=== PATIENT | female | born 1950 | race Caucasian/White ===

== ENCOUNTER 2019-12-27 06:10 | Inpatient (IN) | payer MEDICARE, BC ==
[2019-12-27] MEDS ORDERED: Acetaminophen 500 MG Tab PO ONE (06:30)
[2019-12-27] MEDS ORDERED: Scopolamine 1.5 MG Transdermal Patch TRDERM SCH (06:30)
[2019-12-27] MEDS ORDERED: Celecoxib 200 MG Cap PO ONE (06:30)
[2019-12-27] MEDS ORDERED: Meropenem 500 MG SDV ONE (06:34)
[2019-12-27] MEDS ORDERED: Lidocaine 1% with EPINEPHrine 1:100,000 50 ML MDV ONE (06:36)
[2019-12-27] MEDS ORDERED: Bupivacaine 0.5% 50 ML MDV ONE (06:36)
[2019-12-27] MEDS ORDERED: Dextrose 5%-Lactated Ringers 1,000 ML IV SCH (07:00)
[2019-12-27] MEDS ORDERED: Succinylcholine 200 MG/10 ML MDV ONE (07:05)
[2019-12-27] MEDS ORDERED: fentaNYL 250 MCG/5 ML SDV ONE ×2 (07:05→08:27)
[2019-12-27] MEDS ORDERED: Ondansetron 4 MG/2 ML SDV ONE (07:05)
[2019-12-27] MEDS ORDERED: Glycopyrrolate 0.2 MG/ML 5 ML MDV ONE (07:05)
[2019-12-27] MEDS ORDERED: Neostigmine Methylsulfate 1 MG/ML 5 ML Syringe ONE (07:05)
[2019-12-27] MEDS ORDERED: Rocuronium 50 MG/5 ML Vial ONE (07:05)
[2019-12-27] MEDS ORDERED: Dexamethasone 4 MG/ML SDV ONE (07:05)
[2019-12-27] MEDS ORDERED: Propofol 200 MG/20 ML SDV ONE (07:05)
[2019-12-27] MEDS ORDERED: Albuterol/Ipratropium 3.0-0.5 MG/3 ML Neb Soln NEB ONE (07:30)
[2019-12-27] MEDS ORDERED: Albuterol 8 GM Inhaler INH ONE (08:00)
[2019-12-27] MEDS ORDERED: cefOXitin 2 GM in Sodium Chloride 0.9% 50 ML IV ONE (08:15)
[2019-12-27] MEDS ORDERED: Ketamine 500 MG/5 ML MDV IV SCH (08:30)
[2019-12-27] MEDS ORDERED: Ketamine 50 MG in Sodium Chloride 0.9% 49.5 ML IV SCH (08:30)
[2019-12-27] MEDS ORDERED: Magnesium Sulfate 2.7 GM in Sodium Chloride 0.9% 100 ML IV SCH (08:30)
[2019-12-27] MEDS ORDERED: Magnesium Sulfate 4.3 GM in Sodium Chloride 0.9% 250 ML IV ONE (08:30)
[2019-12-27] MEDS ORDERED: Ropivacaine 46 ML, dexAMETHasone 8 MG, EPINEPHrine 0.4 MG, Sodium Chloride 0.9% 31.6 ML NERVRT SCH ×4 (08:30)
[2019-12-27] MEDS ORDERED: hydrOXYzine HCL 100 MG/2 ML SDV IM ONE (10:12)
[2019-12-27] MEDS ORDERED: Ondansetron 4 MG/2 ML SDV IVPUSH ONE (10:13)
[2019-12-27] MEDS: Dextrose 5%-Lactated Ringers 1,000 ML IV SCH ×2 (11:00→22:29)
[2019-12-27] MEDS ORDERED: Cyclobenzaprine 10 MG Tab PO PRN (11:20)
[2019-12-27] MEDS: HYDROmorphone 1 MG/ML Syringe IV PRN ×2 (11:24→22:40)
[2019-12-27] MEDS ORDERED: Labetalol 20 MG/4 ML Syringe IVPUSH PRN (12:00)
[2019-12-27] MEDS ORDERED: Metoclopramide 10 MG/2 ML SDV IVPUSH PRN (12:00)
[2019-12-27] MEDS ORDERED: Pantoprazole 40 MG Vial IVPUSH SCH (12:00)
[2019-12-27] MEDS ORDERED: Acetaminophen 500 MG Tab PO PRN (12:00)
[2019-12-27] MEDS ORDERED: diphenhydrAMINE 50 MG/ML SDV IVPUSH PRN (12:00)
[2019-12-27] MEDS ORDERED: hydrOXYzine HCL 100 MG/2 ML SDV IM PRN (12:00)
[2019-12-27] MEDS ORDERED: HYDROmorphone 0.5 MG/0.5 ML Syringe IVPUSH PRN (12:00)
[2019-12-27] MEDS ORDERED: Calcium Gluconate 10% 1 GM/10 ML SDV IVPUSH PRN (12:00)
[2019-12-27] MEDS ORDERED: Ondansetron 4 MG/2 ML SDV IVPUSH PRN (12:00)
[2019-12-27] MEDS: Acetaminophen 500 MG Tab PO SCH ×2 (14:16→21:00)
[2019-12-27] MEDS: cefOXitin 2 GM in Sodium Chloride 0.9% 50 ML IV SCH ×2 (14:31→20:58)
[2019-12-27] MEDS: Oxybutynin 5 MG Tab PO SCH ×2 (14:36→21:03)
[2019-12-27] MEDS ORDERED: MVI, Adult with Vitamin K 10 ML, Thiamine 200 MG, Chromium/Copper/Mang/Selen/Zn 1 ML in... IV SCH ×4 (16:00)
[2019-12-27] MEDS: Heparin Sodium 5,000 Units/ML Vial SUBCUT SCH (16:43)
[2019-12-27] MEDS: oxyCODONE 5 MG Tab PO PRN (21:14)
[2019-12-28] MEDS: cefOXitin 2 GM in Sodium Chloride 0.9% 50 ML IV SCH ×2 (02:30→07:53)
[2019-12-28] MEDS: Heparin Sodium 5,000 Units/ML Vial SUBCUT SCH ×2 (03:41→15:35)
[2019-12-28] MEDS: oxyCODONE 5 MG Tab PO PRN ×4 (03:42→21:53)
[2019-12-28] MEDS ORDERED: methylPREDNISolone Sodium Succinate 125 MG/2 ML SDV IVPUSH ONE (04:00)
[2019-12-28] MEDS ORDERED: diphenhydrAMINE 50 MG/ML SDV IVPUSH ONE (04:00)
[2019-12-28] MEDS: Dextrose 5%-Lactated Ringers 1,000 ML IV SCH ×2 (04:36→11:56)
[2019-12-28] MEDS: Acetaminophen 500 MG Tab PO SCH ×3 (05:05→21:49)
[2019-12-28] MEDS ORDERED: Ondansetron 4 MG Tab.DIS PO PRN (06:56)
[2019-12-28] MEDS: Levothyroxine 25 MCG Tab PO SCH (07:51)
[2019-12-28] MEDS: Oxybutynin 5 MG Tab PO SCH ×3 (08:01→20:05)
[2019-12-28] MEDS: Celecoxib 200 MG Cap PO SCH ×2 (08:02→20:02)
[2019-12-28] MEDS: SCOPOLAMINE PATCH CHECK TOP SCH (08:02)
[2019-12-28] MEDS: Sertraline 50 MG Tab PO SCH (08:02)
--- NOTE | 2019-12-28 09:20 | CR ---
[facility] HISTORY: Postbariatric surgery FINDINGS: Patient swallowed water-soluble contrast. Upright views of the abdomen show no evidence of extravasation or obstruction. IMPRESSION: Status post bariatric surgery No extravasation or obstruction seen
--- NOTE | 2019-12-28 09:30 | PN ---
DATE OF SERVICE: 12/28/2019 SUBJECTIVE: Alice is postoperative day 1. She has been afebrile. Vital signs have been stable. Pain has been managed with oxycodone and Dilaudid IV. Oral intake 930, output 2840 via Leon catheter. She has been up, ambulating. Upper GI this morning was normal. REVIEW OF SYSTEMS: Remainder of review of systems negative for any pertinent positives and negatives. OBJECTIVE: GENERAL: Alice Mccall is a pleasant 69-year-old female. VITAL SIGNS: TPR at 0711; 97, 60, 16. Blood pressure 122/86. HEENT: Negative. NECK: Supple. HEART: Regular rate and rhythm. LUNGS: Clear. ABDOMEN: Dressing dry and intact. Aquacel dressing is on. Abdominal binder is on. EXTREMITIES: Without peripheral edema. ASSESSMENT: Exploratory laparotomy with lysis of adhesions. 1. Revision of Lynda-en-Y gastric bypass surgery. 2. Separate small bowel strictureplasty. 3. Excision of peritoneal nodule. POSTOPERATIVE DIAGNOSES: 1. Partial small bowel obstruction secondary to adhesions. 2. 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 3. Peritoneal nodule Lynda limb, small bowel, 3.5 cm. Date of surgery 12/27/2019. Surgeon: Tino Haywood MD. PLAN: 1. Decrease IV to 100 mL per hour. 2. Discontinue Leon catheter. 3. Step 2 gastric bypass diet with no cereal. 4. Continue use of incentive spirometer. 5. We will evaluate p.r.n. or in a.m. Galina Kat PA-C /[id number]
[2019-12-28] MEDS: Pantoprazole 40 MG Delayed-Release Granules 1 Packet PO SCH (11:31)
[2019-12-28] MEDS: MVI, Adult with Vitamin K 10 ML, Thiamine 200 MG, Chromium/Copper/Mang/Selen/Zn 1 ML in... IV SCH ×4 (15:40)
[2019-12-28] MEDS: hydrOXYzine HCl 25 MG Tab PO PRN (20:05)
[2019-12-29] MEDS: Heparin Sodium 5,000 Units/ML Vial SUBCUT SCH ×2 (04:54→16:54)
[2019-12-29] MEDS: oxyCODONE 5 MG Tab PO PRN ×2 (04:58→11:10)
[2019-12-29] MEDS: Acetaminophen 500 MG Tab PO SCH ×3 (07:19→21:45)
[2019-12-29] MEDS: Levothyroxine 25 MCG Tab PO SCH (07:19)
[2019-12-29] MEDS: Dextrose 5%-Lactated Ringers 1,000 ML IV SCH (08:28)
[2019-12-29] MEDS: Sertraline 50 MG Tab PO SCH (08:44)
[2019-12-29] MEDS: Oxybutynin 5 MG Tab PO SCH ×3 (08:44→20:02)
[2019-12-29] MEDS: Bisacodyl 5 MG Tab PO SCH ×2 (08:44→20:02)
[2019-12-29] MEDS: Celecoxib 200 MG Cap PO SCH ×2 (08:44→20:02)
[2019-12-29] MEDS: SCOPOLAMINE PATCH CHECK TOP SCH (08:44)
[2019-12-29] MEDS ORDERED: Cyanocobalamin (Vitamin B12) 1,000 MCG/ML SDV IM ONE (09:00)
--- NOTE | 2019-12-29 10:15 | PN ---
DATE OF SERVICE: 12/29/2019 SUBJECTIVE: Alice has not had a bowel movement yet. Her pain is controlled. Vital signs stable. She has been up ambulating. Oral intake is 600 mL. Urine output is 650. Reports she is passing flatus. REVIEW OF SYSTEMS: Remainder of review of systems negative for any pertinent positives or negatives. OBJECTIVE: GENERAL: Alice Mccall is a pleasant 69-year-old female. She is alert and orientated. Color pale. VITAL SIGNS: TPR at 0726, 96.5, 66, 16, blood pressure 147/62. HEENT: Negative. NECK: Supple. HEART: Regular rate and rhythm. LUNGS: Clear. ABDOMEN: Dressings dry and intact. Aquacel dressing is on. EXTREMITIES: Without peripheral edema. ASSESSMENT: Exploratory laparotomy with lysis of adhesions. 1. Revision of Lynda-en-Y gastric bypass surgery. 2. Separate small bowel strictureplasty. 3. Excision of peritoneal nodule. POSTOPERATIVE DIAGNOSES: 1. Partial small bowel obstruction secondary to adhesions. 2. 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 3. Peritoneal nodule Lynda limb, small bowel, 3.5 cm. Date of procedure, 12/27/2019. Surgeon: Tino Haywood MD. PLAN: 1. Dressing off, may shower, leaving Aquacel dressing on. 2. Dulcolax tablets 10 mg p.o. b.i.d. Discontinue when the patient has a bowel movement. 3. We will evaluate p.r.n. or in a.m. Galina Kat PA-C /[id number]
[2019-12-29] MEDS: Pantoprazole 40 MG Delayed-Release Granules 1 Packet PO SCH (11:10)
[2019-12-29] MEDS: MVI, Adult with Vitamin K 10 ML, Thiamine 200 MG, Chromium/Copper/Mang/Selen/Zn 1 ML in... IV SCH ×4 (16:55)
[2019-12-29] MEDS: hydrOXYzine HCl 25 MG Tab PO PRN (20:50)
[2019-12-30] MEDS: Heparin Sodium 5,000 Units/ML Vial SUBCUT SCH ×2 (04:44→15:29)
[2019-12-30] MEDS: Acetaminophen 500 MG Tab PO SCH ×3 (05:32→21:18)
[2019-12-30] MEDS: Levothyroxine 25 MCG Tab PO SCH (07:13)
[2019-12-30] MEDS: Sertraline 50 MG Tab PO SCH (08:55)
[2019-12-30] MEDS: Celecoxib 200 MG Cap PO SCH ×2 (08:55→21:18)
[2019-12-30] MEDS: Oxybutynin 5 MG Tab PO SCH ×3 (08:55→21:18)
--- NOTE | 2019-12-30 09:30 | PN ---
DATE OF SERVICE: 12/30/2019 SUBJECTIVE: Alice states she did not sleep very well, feels weak. Today, pain has been controlled. Afebrile. Oral intake 2280, urine output 3300. She has had 2 loose bowel movements. Vital signs have been stable. O2 sat by pulse oximetry has been 92% on 2 L. Alice does not have sleep apnea and does not have a CPAP at home. REVIEW OF SYSTEMS: Remainder of review of systems negative for any pertinent positives and negatives. OBJECTIVE: GENERAL: Alice Mccall is a pleasant 69-year-old female. She is quite sleepy this morning. Color pale. VITAL SIGNS: TPR at 0730; 97.1, 59, 16. Blood pressure 135/61. HEENT: Negative. NECK: Supple. HEART: Regular rate and rhythm. LUNGS: Clear. ABDOMEN: Dressing dry and intact. Aquacel is on. EXTREMITIES: Without peripheral edema. ASSESSMENT: 1. IV saline lock. 2. Wean off oxygen and discontinue. 3. Work on good pulmonary function. 4. Will evaluate p.r.n. or in a.m. Galina Kat PA-C /[id number]
[2019-12-30] MEDS: Pantoprazole 40 MG Delayed-Release Granules 1 Packet PO SCH (13:00)
[2019-12-30] MEDS: hydrOXYzine HCl 25 MG Tab PO PRN (21:18)
[2019-12-31] MEDS: Heparin Sodium 5,000 Units/ML Vial SUBCUT SCH (05:16)
[2019-12-31] MEDS: Acetaminophen 500 MG Tab PO SCH (05:16)
[2019-12-31] MEDS: Levothyroxine 25 MCG Tab PO SCH (07:49)
[2019-12-31] MEDS: Celecoxib 200 MG Cap PO SCH (08:20)
[2019-12-31] MEDS: Sertraline 50 MG Tab PO SCH (08:20)
[2019-12-31] MEDS: Oxybutynin 5 MG Tab PO SCH (08:20)
--- NOTE | 2020-01-01 10:31 | DISCH ---
ADMISSION DIAGNOSES: Partial small bowel obstruction, postprandial abdominal pain, status post Lynda-en-Y gastric bypass surgery, unspecified surgical malabsorption, B12 deficiency, history of weight gain, depression, hypoglycemia, hypothyroidism, history of basal cell carcinoma, constipation and chronic neck pain. DISCHARGE DIAGNOSES: Exploratory laparotomy with lysis of adhesions. 1. Revision of Lynda-en-Y gastric bypass surgery. 2. Separate small bowel strictureplasty. 3. Excision of peritoneal nodule. POSTOPERATIVE DIAGNOSES: 1. Partial small bowel obstruction secondary to adhesions. 2. Stricture of pre-existing jejunojejunostomy. 3. Peritoneal nodule Lynda limb, small bowel, 3.5 cm. Date of surgery 12/27/2019. Surgeon, Tino Haywood MD. HISTORY: Alice Mccall is a 69-year-old female with postprandial abdominal pain. After preoperative evaluation and discussion of possible risks and possible complications, she wished to proceed with surgical procedure. HOSPITAL COURSE: Alice had her surgery on 12/27/2019. She had no operative complications. On postoperative day #1, her IV was decreased, Leon was discontinued. She was started on a step 2 gastric bypass diet. On postoperative day 2, dressing was off. She may shower. She was started on bowel stimulation. On postoperative day #3, she was having bowel movements, but pain was not adequately controlled. She states she was weak and continued with step 2 gastric bypass diet. She had dietary instruction, and on 12/31/2019, she was able to be discharged to home. Oral intake adequate. Vital signs stable. Afebrile. Activity good and pain was controlled. PHYSICAL EXAMINATION: GENERAL: Alice is a pleasant 69-year-old female. VITAL SIGNS: Height is 5 feet 7 inches. Weight is 199 pounds. TPR at 0827, 95.8, 57, 18. Blood pressure 132/46. HEENT: Negative. NECK: Supple. HEART: Regular rate and rhythm. LUNGS: Clear. ABDOMEN: Aquacel dressings on. Abdominal binder is on. EXTREMITIES: Without peripheral edema. DISPOSITION: Discharged to home. CONDITION: Stable and improving. FOLLOWUP APPOINTMENT: Galina Kat PA-C, on 01/06/2020 at 9:45 a.m. HOME MEDICATIONS: 1. Celebrex 200 mg b.i.d., #28. 2. Atarax 25 mg q.4 hours p.r.n. pain. 3. Tylenol 1000 mg oral q.8 hours p.r.n. pain. 4. Zofran 4 mg ODT every 4 hours p.r.n. nausea. She is to resume her home medications; oxybutynin ER 15 mg oral daily, sertraline 200 mg oral daily. Discontinue taking vitamins until first postop appointment. DIET: Step 2 gastric bypass diet with no cereal. Drink 8 to 10 glasses of water a day. ACTIVITY: No lifting greater than 10 pounds for 6 weeks. Other activity, do not drive for 1 week and while on pain medication. Shower/bathing: May shower. No tub bathing or swimming for 6 weeks. DISCHARGE INSTRUCTIONS: Notify provider if any fever, increased pain, nausea, or vomiting. Keep site clean and dry. Wound incision care. Wear abdominal binder for 6 weeks. Special instructions: Use incentive spirometer 10 times every hour while awake.
--- NOTE | 2020-01-17 13:48 | OR ---
DATE OF PROCEDURE: 12/27/2019 SURGEON: Tino Haywood MD PREOPERATIVE DIAGNOSIS: Partial small bowel obstruction. POSTOPERATIVE DIAGNOSES: 1. Partial small bowel obstruction secondary to adhesions. 2. Stricture at the previous jejunojejunostomy. 3. Peritoneal nodule located over mid Lynda limb of the small bowel. OPERATIVE PROCEDURES: Exploratory laparotomy with lysis of adhesions: 1. Revision of jejunojejunostomy component of Lynda-en-Y gastric bypass (70698). 2. Separate small bowel stricturoplasty (07918). 3. Excision of peritoneal nodule located over Lynda limb (31124). ANESTHESIA: General. WINDING INSPECTOR: Galina Kat PA-C INDICATIONS FOR PROCEDURE: This is a 69-year-old status post Lynda-en-Y gastric bypass, presenting with a picture of partial small bowel obstruction. The plan is to proceed with a limited laparotomy with lysis of adhesions and bowel resection as indicated. Potential risks including bleeding, infection, leaks from various GI tract closure, as well as possibility of cardiopulmonary, septic, or hemorrhagic complications leading to were discussed, and the patient wishes to proceed. DETAILS OF PROCEDURE: The patient was taken to the operating room, and after general endotracheal anesthesia was induced, a Leon catheter was inserted and the abdomen prepped and draped. A midline incision from the umbilicus roughly a handsbreadth toward the xiphoid was made and carried down through the skin, subcutaneous tissue, fascia, and peritoneum. Upon entering the peritoneal cavity, the patient was noted to have quite a bit in the way of extensive adhesions. At the point of obstruction, there was an obvious area of adhesion formation over the distal Lynda limb. After this as well as additional adhesions were taken down, the patient was noted to have a nodular peritoneal implant over the Lynda limb extending into its adjacent mesentery. This measured at 3.5 cm in maximal dimension and was excised and sent as a separate specimen. The patient was noted to have a stricturing present at the point where the Lynda limb entered the jejunojejunostomy, as well as some separate stricturing of the common limb related to dense adhesions in that area. The jejunojejunostomy component of Lynda-en-Y gastric bypass was, therefore, revised with division of the Lynda limb as it entered the present jejunojejunostomy with a ANASTASIA stapler. Small bowel was then resected. This was then moved down further into the common limb beyond the original jejunojejunostomy, where a [id number] enteroenterostomy was accomplished with internal firing of the Endo-ANASTASIA 60 mm stapler, followed by 30 mm internal firing. Common limb was then closed transversely with the same stapler and the angles of anastomosis reinforced with some 3-0 Vicryl stitch. The mesenteric defect was closed with a 2-0 silk stitch to provide some permanency to that defect closure. In the mid common limb, the patient was noted to have an area of narrowing related to chronic adhesion formation. The bowel was flipped over on itself at that point, and on its antimesenteric border, an enterotomy was placed and internal firing of the 60 mm stapler between 2 limbs was initially fired, followed by another 30 mm internal firing. Common opening was closed transversely with a purple load, the angles of anastomosis and mesenteric defect at the stricturoplasty point were then closed with some 3-0 Vicryl stitch. At this point, no further problems were noted. The abdomen was irrigated with meropenem- containing saline solution. The patient had sufficient omentum to cover the area underlying the incision. The patient at that point had received bilateral transversus abdominis plane blocks, and the fascia was anesthetized with 1% lidocaine mixed with Marcaine. Then, fascia closed with some #2 Vicryl stitch, subcutaneous tissue with a layer of 3-0 and 4-0 Vicryl stitch deep, and kristina for the skin. Dressing was applied. The patient was taken to the recovery room in satisfactory condition. Of note, the final dimensions of the patient's small bowel anatomy included a Lynda limb of 80 cm, a biliopancreatic limb of 320 cm, and a common limb of 250 cm. This design of the small bowel anatomy was intended to have the patient lose some additional weight as discussed preoperatively. Physician preschool assistant director, Galina Kat, played an essential role in assisting this case, helping to position the patient, retract structures as needed, as well as suturing and cutting sutures when indicated. Her presence improved patient safety and decreased operative time. Tino Haywood MD /[id number]
== END 2019-12-31 10:34 | disposition home or self-care (01) | DRG 327 ==
LOC: JP.SDSSCHI 06:10 → JP.SDS 06:10 → JP.MS 10:00 → EDSTATUS 10:15
PROVIDERS: ADMIT Surgery; ATTEND Surgery
PROC: 0DBW0ZZ Excision of Peritoneum, Open Approach (ICD-10-PCS; principal; 2019-12-27)
PROC: 0D160ZA Bypass Stomach to Jejunum, Open Approach (ICD-10-PCS; principal; 2019-12-27)
PROC: 0DN80ZZ Release Small Intestine, Open Approach (ICD-10-PCS; principal; 2019-12-27)
PROC: 0DQ80ZZ Repair Small Intestine, Open Approach (ICD-10-PCS; principal; 2019-12-27)
DX: K56.51 Intestinal adhesions [bands], with partial obstruction (principal); K94.19 Other complications of enterostomy; K91.2 Postsurgical malabsorption, not elsewhere classified; Y83.8 Other surgical procedures as the cause of abnormal reaction of the patient, or of later complication, without mention of misadventure at the time of the procedure; R19.09 Other intra-abdominal and pelvic swelling, mass and lump; E53.8 Deficiency of other specified B group vitamins; F32.9 Major depressive disorder, single episode, unspecified; E03.9 Hypothyroidism, unspecified; K59.00 Constipation, unspecified; G89.29 Other chronic pain; M54.2 Cervicalgia; M20.11 Hallux valgus (acquired), right foot; E66.9 Obesity, unspecified; Z96.642 Presence of left artificial hip joint; Z90.89 Acquired absence of other organs; Z91.09 Other allergy status, other than to drugs and biological substances; Z91.013 Allergy to seafood; Z98.84 Bariatric surgery status; Z85.828 Personal history of other malignant neoplasm of skin; Z90.49 Acquired absence of other specified parts of digestive tract; Z90.710 Acquired absence of both cervix and uterus; Z98.890 Other specified postprocedural states; Z79.899 Other long term (current) drug therapy
CPT/HCPCS: 74240; 74240-26; 88305; 94640; A9270-GY; C9113; J0171; J0330; J0694; J1100; J1170; J1200; J1644; J2185; J2405; J2704; J2710; J2795; J2930; J3010; J3410; J3411; J3420; J3475; J3490; J7050; J7121

== ENCOUNTER 2020-10-24 08:41 | Inpatient (IN) | payer MEDICARE, BC ==
[~2020-10-24 08:41] MED LIST: Dexamethasone 4 MG/ML SDV ONE; Glycopyrrolate 0.2 MG/ML 5 ML MDV ONE; Neostigmine Methylsulfate 1 MG/ML 5 ML Syringe ONE; Ondansetron 4 MG/2 ML SDV ONE; Propofol 200 MG/20 ML SDV ONE; Rocuronium 50 MG/5 ML Vial ONE; Succinylcholine 200 MG/10 ML MDV ONE; fentaNYL 250 MCG/5 ML SDV ONE
[2020-10-24] MEDS ORDERED: Acetaminophen 500 MG Tab PO ONE (09:00)
[2020-10-24] MEDS: Dextrose 5%-Lactated Ringers 1,000 ML IV SCH ×2 (09:05→13:44)
[2020-10-24] MEDS ORDERED: Celecoxib 200 MG Cap PO ONE (09:15)
[2020-10-24] MEDS ORDERED: Naloxone 0.4 MG/ML SDV IVPUSH PRN (10:15)
[2020-10-24] MEDS ORDERED: HYDROmorphone/Normal Saline 15 MG/30 ML PCA IV PRN (10:15)
[2020-10-24] MEDS ORDERED: ceFAZolin 2 GM in Premix Bag 1 BAG IV ONE (10:30)
[2020-10-24] MEDS ORDERED: Ketamine 500 MG/5 ML MDV IV SCH (10:45)
[2020-10-24] MEDS ORDERED: Ketamine 50 MG in Sodium Chloride 0.9% 49.5 ML IV SCH (10:45)
[2020-10-24] MEDS ORDERED: Ropivacaine 40 ML, dexAMETHasone 8 MG, EPINEPHrine 0.4 MG, Sodium Chloride 0.9% 37.6 ML NERVRT SCH ×4 (10:45)
[2020-10-24] MEDS ORDERED: Meropenem 500 MG SDV ONE (10:51)
[2020-10-24] MEDS ORDERED: Bupivacaine 0.5%/EPINEPHrine 1:200,000 50 ML MDV ONE (10:55)
[2020-10-24] MEDS ORDERED: fentaNYL 250 MCG/5 ML SDV ONE (12:02)
[2020-10-24] MEDS ORDERED: Lidocaine 1% 50 ML MDV ONE (12:44)
[2020-10-24] MEDS ORDERED: hydrOXYzine HCL 100 MG/2 ML SDV IM ONE (13:41)
[2020-10-24] MEDS ORDERED: hydrOXYzine HCL 100 MG/2 ML SDV IM PRN (14:53)
[2020-10-24] MEDS ORDERED: Ondansetron 4 MG/2 ML SDV IVPUSH PRN (14:54)
[2020-10-24] MEDS ORDERED: Dextrose 5%-Lactated Ringers 1,000 ML IV SCH (15:00)
[2020-10-24] MEDS: Cyclobenzaprine 10 MG Tab PO PRN (15:10)
[2020-10-24] MEDS: Acetaminophen 500 MG Tab PO SCH ×2 (16:09→22:51)
[2020-10-24] MEDS: ceFAZolin 2 GM in Premix Bag 1 BAG IV SCH (19:59)
[2020-10-24] MEDS: Celecoxib 200 MG Cap PO SCH (22:51)
[2020-10-25] MEDS: ceFAZolin 2 GM in Premix Bag 1 BAG IV SCH ×2 (05:21→12:02)
[2020-10-25] MEDS: Acetaminophen 500 MG Tab PO SCH ×4 (05:21→21:25)
[2020-10-25] MEDS: Levothyroxine 25 MCG Tab PO SCH (07:27)
[2020-10-25] MEDS: Cyclobenzaprine 10 MG Tab PO PRN (07:28)
[2020-10-25] MEDS ORDERED: Ondansetron 4 MG Tab.DIS PO PRN (08:00)
[2020-10-25] MEDS: Dextrose 5%-Lactated Ringers 1,000 ML IV SCH ×2 (09:21→19:51)
[2020-10-25] MEDS: Sertraline 50 MG Tab PO SCH (09:26)
[2020-10-25] MEDS: HYDROmorphone 2 MG Tab PO PRN ×2 (09:26→19:50)
[2020-10-25] MEDS: Oxybutynin 5 MG Tab PO SCH ×3 (09:28→20:11)
[2020-10-25] MEDS: Celecoxib 200 MG Cap PO SCH ×2 (09:28→20:11)
--- NOTE | 2020-10-25 12:54 | PN ---
DATE OF SERVICE: 10/25/2020 SUBJECTIVE: Alice is postop day 1. She has been up ambulating. Oral intake 720. Urine output 440 via Leon catheter. Vital signs have been stable. Pain has been controlled. REVIEW OF SYSTEMS: Remainder of review of systems negative for any pertinent positives and negatives. OBJECTIVE: GENERAL: Alice is a 70-year-old female, alert and orientated. VITAL SIGNS: TPR is 97, 56, and 16. Blood pressure 136/59. HEENT: Negative. NECK: Supple. HEART: Regular rate and rhythm. LUNGS: Clear. ABDOMEN: Dressings dry and intact. Abdominal binder is on. EXTREMITIES: Without peripheral edema. ASSESSMENT: 1. Exploratory laparotomy with lysis of adhesions. 2. Repair of incarcerated incisional hernia with mesh. 3. Reduction of small bowel volvulus. 4. Placement of Interceed mesh. POSTOPERATIVE DIAGNOSES: 1. Multifocal incarcerated incisional hernia. 2. Extensive intraabdominal adhesions. 3. Focal small bowel volvulus. Date of procedure 10/24/2020. Surgeon: Tino Haywood MD. PLAN: 1. Discontinue Leon. 2. Step 3 gastric bypass diet. 3. Discontinue REFINERY OPERATOR HELPER and continuous pulse oximetry. 4. Dilaudid 2 mg 1 to 2 every 4 hours p.r.n. pain. 5. Continue use of incentive spirometer and ambulation. 6. We will evaluate p.r.n. or in a.m. Galina Kat PA-C /[id number]
[2020-10-26] MEDS: HYDROmorphone 2 MG Tab PO PRN ×5 (02:26→21:23)
[2020-10-26] MEDS: Acetaminophen 500 MG Tab PO SCH ×4 (04:30→21:20)
[2020-10-26] MEDS: Dextrose 5%-Lactated Ringers 1,000 ML IV SCH (04:32)
[2020-10-26] MEDS: Sertraline 50 MG Tab PO SCH (08:29)
[2020-10-26] MEDS: Docusate Sodium 100 MG Cap PO SCH ×2 (08:30→21:20)
[2020-10-26] MEDS: Oxybutynin 5 MG Tab PO SCH ×3 (08:30→21:20)
[2020-10-26] MEDS: Bisacodyl 5 MG Tab PO SCH ×2 (08:30→21:21)
[2020-10-26] MEDS: Levothyroxine 25 MCG Tab PO SCH (08:30)
[2020-10-26] MEDS: Celecoxib 200 MG Cap PO SCH ×2 (08:30→21:20)
--- NOTE | 2020-10-26 12:16 | PN ---
DATE OF SERVICE: 10/26/2020 SUBJECTIVE: Alice states her pain is controlled. Vital signs have been stable. Oral intake and output have been good. REVIEW OF SYSTEMS: Remainder of review of systems negative for any pertinent positives and negatives. OBJECTIVE: GENERAL: Fareed Mccall is a pleasant 70-year-old female. VITAL SIGNS: TPR is 96.9, 55, 18, blood pressure 140/54. HEENT: Negative. NECK: Supple. HEART: Regular rate and rhythm. LUNGS: Clear. ABDOMEN: Aquacel dressing is on. 4x4s over the staple sites at the edge of the mesh. Abdominal binder is on. EXTREMITIES: Without peripheral edema. ASSESSMENT: 1. Exploratory laparotomy with lysis of adhesions. 2. Repair of incarcerated incisional hernia with mesh. 3. Reduction of small bowel volvulus. 4. Placement of Interceed mesh. POSTOPERATIVE DIAGNOSES: 1. Multifocal incarcerated incisional hernia. 2. Extensive intraabdominal adhesions. 3. Focal small bowel volvulus. 4. Date of procedure: 10/24/2020. Surgeon: Tino Haywood MD. PLAN: 1. Colace 100 mg p.o. b.i.d. 2. Dulcolax tablets 10 mg b.i.d. 3. Continue use of incentive spirometer. 4. We will evaluate p.r.n. or in a.m. Galina Kat PA-C /[id number]
[2020-10-27] MEDS: Acetaminophen 500 MG Tab PO SCH ×3 (04:14→15:44)
[2020-10-27] MEDS: Levothyroxine 25 MCG Tab PO SCH (07:15)
[2020-10-27] MEDS: HYDROmorphone 2 MG Tab PO PRN ×2 (07:22→15:01)
[2020-10-27] MEDS: Oxybutynin 5 MG Tab PO SCH ×2 (08:44→13:54)
[2020-10-27] MEDS: Celecoxib 200 MG Cap PO SCH (08:44)
[2020-10-27] MEDS: Sertraline 50 MG Tab PO SCH (08:44)
[2020-10-27] MEDS: Bisacodyl 5 MG Tab PO SCH (08:44)
[2020-10-27] MEDS: Docusate Sodium 100 MG Cap PO SCH (08:44)
--- NOTE | 2020-10-27 10:10 | DISCH ---
ADMISSION DIAGNOSES: Incarcerated incisional hernia, status post Lynda-en-Y gastric bypass surgery, unspecified surgical malabsorption, B12 deficiency, and vitamin D deficiency. DISCHARGE DIAGNOSES: 1. Exploratory laparotomy with lysis of adhesions. 2. Repair of incarcerated incisional hernia with mesh. 3. Reduction of small bowel volvulus. 4. Placement of Interceed mesh. POSTOPERATIVE DIAGNOSES: 1. Multifocal incarcerated incisional hernia. 2. Extensive intraabdominal adhesions. 3. Focal small bowel volvulus. 4. Date of procedure: 10/24/2020. Surgeon: Tino Haywood MD. HISTORY: Alice is a 70-year-old female with incisional hernia. After preoperative evaluation and discussion of possible risks and possible complications, she wished to proceed with surgical procedure. HOSPITAL COURSE: Alice had her surgery on 10/24/2020. She had no operative complications. On postoperative day #1, her IV was discontinued. She was started on a step 3 gastric bypass diet. Her BABY ATTENDANT was discontinued. She was started on oral pain medication. On postoperative day #2, she was started on stool stimulant and softener. She did have a bowel movement. Vital signs remained stable. Pain was controlled and she was able to be discharged to home without any complications. PHYSICAL EXAMINATION: GENERAL: Alice Mccall is a pleasant 70-year-old female. VITAL SIGNS: Height is 5 feet 7 inches, weight is 178 pounds 9 ounces, BMI is 28. TPR is 97.1, 58, 16, blood pressure 144/57. HEENT: Negative. NECK: Supple. HEART: Regular rate and rhythm. LUNGS: Clear. ABDOMEN: Aquacel dressing is on. Abdominal binder is on. EXTREMITIES: Without peripheral edema. DISPOSITION: Discharged to home. CONDITION: Stable and improving. FOLLOWUP APPOINTMENT: With Galina Kat PA-C, on 11/02/2020 at 9:15 a.m. HOME MEDICATIONS: 1. Celebrex 200 mg p.o. b.i.d., #28. 2. Dilaudid 2 to 4 mg p.o. q.4 hours p.r.n. pain, #20. 3. She is to resume her home medication. DIET: Step 3 gastric bypass diet. Drink 8 to 10 glasses of water a day. ACTIVITY: No lifting greater than 10 pounds. OTHER ACTIVITY: Walk at least 6 times daily inside your home. Driving: Do not drive for 1 week. Shower/bathing: May shower. DISCHARGE INSTRUCTIONS: Keep operative site clean and dry. Wear abdominal binder for 6 weeks if tolerated. Notify provider if any fever, increased pain, swelling, redness, drainage, nausea, or vomiting. SPECIAL INSTRUCTION: Use incentive spirometer 10 times every hour while awake for 1 week. Take off Aquacel dressing in 3 days on 10/30/2020. /[id number]
--- NOTE | 2020-10-31 16:38 | OR ---
DATE OF PROCEDURE: 10/24/2020 SURGEON: Tino Haywood MD PREOPERATIVE DIAGNOSIS: Incisional hernia. POSTOPERATIVE DIAGNOSES: 1. Multifocal incarcerated incisional hernia. 2. Extensive intraabdominal adhesions. 3. Focal small bowel volvulus. PROCEDURES PERFORMED: Exploratory laparotomy with lysis of adhesions: 1. Repair of multifocal incarcerated incisional hernia with mesh (71554, 04020). 2. Reduction of small bowel volvulus with closure of internal hernia (68363). 3. Placement of Interceed mesh x2 to limit recurrent adhesion formation between the pelvic and abdominal wall and underlying viscera (80676). ANESTHESIA: General. PERSONAL CARE SERVICE PROVIDER: Galina Kat PA-C INDICATIONS FOR PROCEDURE: The patient presents with increasingly symptomatic incisional hernia that is located primarily in the supraumbilical area, but appears to extend somewhat down below the umbilicus as well. Plan is to proceed with open laparotomy with lysis of adhesions and repair of the hernia with mesh. Potential risks including bleeding, infection, injury to underlying viscera, problems with bowel becoming adherent or fistulizing into the area of the mesh repair, recurrence of hernia over time, as well as the remote possibility of cardiopulmonary, septic, or hemorrhagic complications leading to were discussed, and the patient wishes to proceed. DETAILS OF PROCEDURE: The patient was taken to the operating room. After general endotracheal anesthesia was induced, a Leon catheter was inserted and the abdomen prepped and draped. The previous midline incision was then made from the umbilicus upward, taken down through the skin and subcutaneous tissue. The hernia sacs were then sequentially identified and dissected free down to the level of the fascia. In the supraumbilical area, there appeared to be 3 separate hernias, 2 of which were fairly small, the other somewhat larger, all of which contained some incarcerated omentum and preperitoneal fat within them. A hernia somewhat below the umbilicus was then also dissected free, and this likely contained some incarcerated omentum within. In each case, hernia sacs were then excised and sent together as a single specimen. The small bowel was then inspected at this point, and there was an area that appeared to be showing some signs of venous hypertension. This turned out to be a focal area of volvulus between the segment of the common limb passing underneath the Lynda limb. This area of volvulus was then reduced and the underlying defect closed with a running 2-0 silk stitch. At this point, the anterior ST mesh was mapped out. A 19.6 x 24.6 cm segment of mesh was selected. This was an oval configuration, mapping out where the sutures would be pulled up through the abdominal wall to provide fixation away from the fascial defect. 2-0 Vicryl sutures were placed on the polypropylene side roughly 5 cm apart along its circumference, and stab wounds were then placed at the appropriate level where the sutures would be pulled up. The mesh was then soaked in antibiotic-containing saline solution. Two layers of Interceed mesh were then placed underneath the incision, from there, down toward the pelvis to limit recurrent adhesion formation, and the mesh was then placed with the polypropylene side of the mesh facing the abdominal wall. Sutures were then pulled up sequentially and tied, thus fixing the mesh in general good position. Prior to placing of the mesh, bilateral subcostal transversus abdominis plane blocks were placed, and after the mesh was affixed to the internal ring with the sutures, the underside of the mesh shelf was fixed circumferentially with titanium tacking screws to the abdominal wall. The midline fascia was then approximated with #2 Vicryl stitch, subcutaneous tissue with 2 layers of 3-0 and 4- 0 Vicryl stitch deep, and the skin with kristina. A dressing was applied. The patient was taken to the recovery room in satisfactory condition. Physician entry level assistant manager, Galina Kat, played an essential role in assisting in this case, helping to position the patient, retract structures as needed, as well as suturing and cutting sutures when indicated. Her presence improved patient safety and decreased operative time. Tino Haywood MD /[id number]
== END 2020-10-27 16:00 | disposition home or self-care (01) | DRG 329 ==
LOC: JP.MS 08:41 → JP.SDS 08:42 → JP.MS 13:20 → EDSTATUS 13:45
PROVIDERS: ADMIT Surgery; ATTEND Surgery
PROC: 0DS80ZZ Reposition Small Intestine, Open Approach (ICD-10-PCS; principal; 2020-10-24)
PROC: 0WUF0JZ Supplement Abdominal Wall with Synthetic Substitute, Open Approach (ICD-10-PCS; 2020-10-24)
PROC: 0DNW0ZZ Release Peritoneum, Open Approach (ICD-10-PCS; 2020-10-24)
PROC: 3E0M05Z Introduction of Adhesion Barrier into Peritoneal Cavity, Open Approach (ICD-10-PCS; 2020-10-24)
DX: K43.0 Incisional hernia with obstruction, without gangrene (principal); K56.2 Volvulus; K90.9 Intestinal malabsorption, unspecified; Z98.84 Bariatric surgery status; E53.8 Deficiency of other specified B group vitamins; E55.9 Vitamin D deficiency, unspecified; K66.0 Peritoneal adhesions (postprocedural) (postinfection); Z91.013 Allergy to seafood; E03.9 Hypothyroidism, unspecified; R32 Unspecified urinary incontinence; F32.9 Major depressive disorder, single episode, unspecified; Z98.890 Other specified postprocedural states; M20.11 Hallux valgus (acquired), right foot; G89.29 Other chronic pain; M54.2 Cervicalgia; K59.00 Constipation, unspecified; E66.9 Obesity, unspecified; Z90.49 Acquired absence of other specified parts of digestive tract; Z90.89 Acquired absence of other organs; Z96.642 Presence of left artificial hip joint; Z79.899 Other long term (current) drug therapy; Z79.890 Hormone replacement therapy; Z91.09 Other allergy status, other than to drugs and biological substances
CPT/HCPCS: 88302; 94762; A9270-GY; C1713; C1781; J0171; J0330; J0690; J1100; J1170; J2001; J2020; J2185; J2405; J2704; J2710; J2795; J3010; J3410; J3490; J7121